=== PATIENT | female | born 1995 | race Caucasian/White ===

== ENCOUNTER 2018-07-31 23:31 | Emergency (ER) | payer MEDICAID ==
[~2018-07-31] VITALS: Ht 170.2 cm; Wt 69.9 kg
[2018-07-31 23:33] VITALS: BP 135/80
[2018-07-31] MEDS ORDERED: ACETAMINOPHEN 325 MG TABLET ONE (23:57)
[2018-08-01] MEDS ORDERED: ACETAMINOPHEN 325 MG TABLET PO ONE
[2018-08-01] MEDS ORDERED: LIDOCAINE-MPF 1%, 5ML ONE (00:37)
[2018-08-01] MEDS ORDERED: LIDOCAINE 1%, 10ML INFIL ONE (01:00)
== END 2018-08-01 01:21 | disposition home or self-care (01) ==
LOC: ED 08-01 00:37
DX: S62.347A Nondisplaced fracture of base of fifth metacarpal bone, left hand, initial encounter for closed fracture (principal); S63.297A Dislocation of distal interphalangeal joint of left little finger, initial encounter; W23.0XXA Caught, crushed, jammed, or pinched between moving objects, initial encounter; Y93.89 Activity, other specified; Y92.69 Other specified industrial and construction area as the place of occurrence of the external cause; Y99.0 Civilian activity done for income or pay
CPT/HCPCS: 26770; 99284

== ENCOUNTER 2018-08-20 16:06 | Emergency (ER) | payer MEDICAID ==
[~2018-08-20] VITALS: Ht 170.2 cm; Wt 70.0 kg
[2018-08-20 16:19] VITALS: BP 152/81
== END 2018-08-20 17:04 | disposition home or self-care (01) ==
LOC: ED 16:45
DX: H66.91 Otitis media, unspecified, right ear (principal); F17.200 Nicotine dependence, unspecified, uncomplicated
CPT/HCPCS: 99283